=== PATIENT | male | born 1985 | race Caucasian/White ===

== ENCOUNTER 2017-06-21 13:08 | Emergency (ER) | payer MEDICAID ==
[~2017-06-21] VITALS: Ht 182.9 cm; Wt 118.2 kg
[~2017-06-21 13:08] MED LIST: CODE240S2 PO; DIVA500T7 PO; FAMO-128 PO; HYDR1TAB PO; IBUP-812 PO; KEP500T PO; NAPR-56 PO
[2017-06-21 13:28] VITALS: BP 108/39
[2017-06-21] MEDS ORDERED: HYDROcodone/acetaminophen 10/325mg tab PO ONE (13:30)
[2017-06-21] MEDS ORDERED: ketorolac trometh inj. 60 MG/2 ML VIAL IM ONE (13:30)
[2017-06-21] MEDS ORDERED: HYDR-565 PO (13:32)
[2017-06-21] MEDS ORDERED: IBUP-1984 PO (13:32)
== END 2017-06-21 14:04 | disposition home or self-care (01) ==
LOC: ER 13:08
DX: M79.662 Pain in left lower leg (principal); M79.1 Myalgia; G89.29 Other chronic pain
CPT/HCPCS: 96372; 99283; J1885

== ENCOUNTER 2017-08-26 12:44 | Outpatient (CLI) | payer MEDICAID | END 2017-08-26 23:59 | disposition home or self-care (01) | LOC: RAD 12:44 | PROVIDERS: ATTEND Registered Nurse | DX: G40.909 Epilepsy, unspecified, not intractable, without status epilepticus (principal); F17.200 Nicotine dependence, unspecified, uncomplicated | CPT/HCPCS: 95816 ==

== ENCOUNTER 2018-01-31 03:21 | Emergency (ER) | payer MEDICAID ==
[~2018-01-31] VITALS: Ht 182.9 cm; Wt 113.6 kg
[~2018-01-31 03:21] MED LIST changes: +DIVA-76 PO; -DIVA500T7 PO
[2018-01-31] MEDS ORDERED: ketorolac trometh. 30mg/ml inj. IM ONE (03:45)
[2018-01-31 04:07] VITALS: BP 119/65
== END 2018-01-31 04:10 | disposition home or self-care (01) ==
LOC: ER 03:21
DX: K08.89 Other specified disorders of teeth and supporting structures (principal); G89.29 Other chronic pain; Z79.899 Other long term (current) drug therapy
CPT/HCPCS: 96372; 99283; J1885

== ENCOUNTER 2018-06-28 00:28 | Emergency (ER) | payer MEDICAID ==
[~2018-06-28] VITALS: Ht 182.9 cm; Wt 99.5 kg
[2018-06-28 00:34] VITALS: BP 123/70
== END 2018-06-28 02:12 | disposition home or self-care (01) ==
LOC: ER 00:29
DX: S93.401A Sprain of unspecified ligament of right ankle, initial encounter (principal); G89.29 Other chronic pain; Z88.1 Allergy status to other antibiotic agents; Z79.899 Other long term (current) drug therapy; W22.8XXA Striking against or struck by other objects, initial encounter; Y93.67 Activity, basketball; Y92.310 Basketball court as the place of occurrence of the external cause; Y99.8 Other external cause status
CPT/HCPCS: 29515; 73610; 99283

== ENCOUNTER 2018-08-09 18:11 | Emergency (ER) | payer MEDICAID ==
[~2018-08-09] VITALS: Ht 182.9 cm; Wt 112.6 kg
[2018-08-09 18:18] VITALS: BP 120/68
== END 2018-08-09 20:31 | disposition home or self-care (01) ==
LOC: ER 18:11
DX: J02.9 Acute pharyngitis, unspecified (principal); G89.29 Other chronic pain; F17.200 Nicotine dependence, unspecified, uncomplicated; Z86.69 Personal history of other diseases of the nervous system and sense organs; Z88.0 Allergy status to penicillin; Z79.899 Other long term (current) drug therapy
CPT/HCPCS: 87081; 87880; 99283

== ENCOUNTER 2020-02-27 17:52 | Emergency (ER) | payer MEDICAID, OTHER ==
[~2020-02-27] VITALS: Ht 185.4 cm; Wt 135.0 kg
[2020-02-27 17:57] VITALS: BP 157/80
[2020-02-27] MEDS ORDERED: ibuprofen tablet 400 MG TABLET PO ONE (21:05)
== END 2020-02-27 21:23 | disposition home or self-care (01) ==
LOC: ER 17:53
DX: M25.531 Pain in right wrist (principal); G89.29 Other chronic pain; Z88.1 Allergy status to other antibiotic agents; Z79.899 Other long term (current) drug therapy; X37.1XXA Tornado, initial encounter; Y93.89 Activity, other specified; Y92.89 Other specified places as the place of occurrence of the external cause; Y99.8 Other external cause status
CPT/HCPCS: 29125; 73110; 99283

== ENCOUNTER 2021-05-02 22:22 | Emergency (ER) | payer OTHER, MEDICAID ==
[~2021-05-02] VITALS: Ht 185.4 cm; Wt 118.2 kg
[2021-05-02 22:34] VITALS: BP 130/68
== END 2021-05-03 00:50 | disposition home or self-care (01) ==
LOC: ER 22:23
DX: R56.9 Unspecified convulsions (principal); G89.29 Other chronic pain; Z86.69 Personal history of other diseases of the nervous system and sense organs; Z88.1 Allergy status to other antibiotic agents; Z79.899 Other long term (current) drug therapy
CPT/HCPCS: 93005; 99283

== ENCOUNTER 2021-08-21 04:53 | Emergency (ER) | payer MEDICAID ==
[~2021-08-21] VITALS: Ht 185.4 cm; Wt 120.0 kg
[2021-08-21] MEDS ORDERED: ketorolac trometh inj. 60 MG/2 ML VIAL IM ONE (06:50)
[2021-08-21] MEDS ORDERED: NAPR-56 PO (07:11)
[2021-08-21 07:32] VITALS: BP 132/75
== END 2021-08-21 07:34 | disposition home or self-care (01) ==
LOC: ER 04:54
DX: M75.21 Bicipital tendinitis, right shoulder (principal); G89.29 Other chronic pain; G40.909 Epilepsy, unspecified, not intractable, without status epilepticus; F17.200 Nicotine dependence, unspecified, uncomplicated; Z88.1 Allergy status to other antibiotic agents; Z79.899 Other long term (current) drug therapy; Z87.81 Personal history of (healed) traumatic fracture
CPT/HCPCS: 96372; 99284; J1885

== ENCOUNTER 2022-02-02 02:59 | Emergency (ER) | payer MEDICAID ==
[~2022-02-02] VITALS: Ht 185.4 cm; Wt 120.0 kg
[2022-02-02 03:32] LABS: BASOPHILS # (AUTO) 0.1 X10'3 (0-0.2); BASOPHILS % (AUTO) 0.6 % (0-1); EOSINOPHILS # (AUTO) 0.1 X10'3 (0-0.9); EOSINOPHILS % (AUTO) 1.7 % (0-6); HEMATOCRIT 47.3 % (42.0-52.0); HEMOGLOBIN 16.7 g/dl (14.0-17.9); LYMPHOCYTES # (AUTO) 1.8 X10'3 (1.1-4.8); LYMPHOCYTES % (AUTO) 21.4 % (21-51); MEAN CORPUSCULAR HEMOGLOBIN 31.2 PG (27.0-31.0); MEAN CORPUSCULAR HGB CONC 35.4 g/dL (33.0-36.5); MEAN CORPUSCULAR VOLUME 88.2 FL (78-98); MEAN PLATELET VOLUME 8.9 FL (7.4-10.4); MONOCYTES # (AUTO) 0.9 X10'3 (0-0.9); MONOCYTES % (AUTO) 10.6 % (2-12); NEUTROPHILS # (AUTO) 5.4 X10'3 (1.8-7.7); NEUTROPHILS % (AUTO) 65.7 % (42-75); PLATELET COUNT 154 X10'3 (140-440); RED BLOOD COUNT 5.36 X10'6 (4.70-6.10); RED CELL DISTRIBUTION WIDTH 12.6 % (11.5-14.5); WHITE BLOOD COUNT 8.2 X10'3 (4.5-11.0)
[2022-02-02 03:47] LABS: CLARITY,URINE CLEAR (Clear); COLOR,URINE YELLOW (Yellow); GLUCOSE, URINE NEGATIVE (Neg); KETONES,URINE NEGATIVE (Neg); LEUKOCYTE ESTERASE ,URINE NEGATIVE (Neg); NITRITES, URINE NEGATIVE (Neg); OCCULT BLOOD,URINE SMALL (Neg); PH,URINE 5.5 (4.8-8.0); PROTEIN,URINE NEGATIVE (Neg); UROBILINOGEN,URINE 0.2 E.U/dL (0.2-1.0)
[2022-02-02 03:50] LABS: ALANINE AMINOTRANSFERASE 34 U/L (12-78); ALBUMIN 3.9 G/DL (3.4-5.0); ALKALINE PHOSPHATASE 88 IU/L (46-116); ANION GAP 11 (8-16); ASPARTATE AMINO TRANSFERASE 40 U/L (10-37); BILIRUBIN,TOTAL 0.5 MG/DL (0.1-1.0); BLOOD UREA NITROGEN 13 MG/DL (7-18); CALCIUM 8.8 MG/DL (8.5-10.1); CHLORIDE 100 MMOL/L (99-107); GLUCOSE 105 MG/DL (70-104); SODIUM 137 MMOL/L (135-145); TOTAL CARBON DIOXIDE 25.8 MMOL/L (24-32); TOTAL PROTEIN 7.7 G/DL (6.4-8.2); eGFR 84 ML/MIN
[2022-02-02 03:51] LABS: UA COLLECTION TYPE CLN CATCH MIDSTREAM
[2022-02-02 03:53] LABS: BACTERIA,URINE 1+ /HPF (Neg); SQUAMOUS EPITHELIAL CELL,UR FEW /LPF (FEW)
--- NOTE | 2022-02-02 06:33 | NUR ---
REPORT FROM JAHAIRA FOR CONTINUATION OF CARE. PT IS AO4 RESP EVEN UNLABORED. PT CLAIMS RT FLANK PAIN 12/10. PT ABLE TO URINATE REPORTS NO BLOOD BUT A BURNING SENSATION. SKIN W/D/I PINK. AWAITING MD TO SEE PT.
[2022-02-02] MEDS ORDERED: normal saline 1000ML IV soln IV ONE (07:35)
[2022-02-02] MEDS ORDERED: CefTRIAXone 2gm/D5W 50ml BAG 50 ML IV ONE (07:35)
[2022-02-02] MEDS ORDERED: CEPH250T PO (07:44)
[2022-02-02 08:41] LABS: BASOPHILS % (AUTO) 0.5 % (0-1); EOSINOPHILS # (AUTO) 0.1 X10'3 (0-0.9); EOSINOPHILS % (AUTO) 0.9 % (0-6); HEMATOCRIT 44.7 % (42.0-52.0); HEMOGLOBIN 15.7 g/dl (14.0-17.9); LYMPHOCYTES # (AUTO) 1.4 X10'3 (1.1-4.8); LYMPHOCYTES % (AUTO) 14.7 % (21-51); MEAN CORPUSCULAR HEMOGLOBIN 31.2 PG (27.0-31.0); MEAN CORPUSCULAR HGB CONC 35.2 g/dL (33.0-36.5); MEAN CORPUSCULAR VOLUME 88.5 FL (78-98); MEAN PLATELET VOLUME 9.6 FL (7.4-10.4); MONOCYTES % (AUTO) 10.4 % (2-12); NEUTROPHILS # (AUTO) 6.7 X10'3 (1.8-7.7); NEUTROPHILS % (AUTO) 73.5 % (42-75); PLATELET COUNT 131 X10'3 (140-440); RED BLOOD COUNT 5.05 X10'6 (4.70-6.10); RED CELL DISTRIBUTION WIDTH 12.6 % (11.5-14.5); WHITE BLOOD COUNT 9.2 X10'3 (4.5-11.0)
[2022-02-02 09:20] LABS: POTASSIUM 3.9 MMOL/L (3.5-5.1); SODIUM 136 MMOL/L (135-145)
[2022-02-02 09:26] LABS: ALANINE AMINOTRANSFERASE 31 U/L (12-78); ALBUMIN 3.8 G/DL (3.4-5.0); ALBUMIN/GLOBULIN RATIO 1.1 (1.1-1.5); ALKALINE PHOSPHATASE 79 IU/L (46-116); ANION GAP 12 (8-16); ASPARTATE AMINO TRANSFERASE 37 U/L (10-37); BILIRUBIN,TOTAL 0.6 MG/DL (0.1-1.0); BLOOD UREA NITROGEN 13 MG/DL (7-18); BUN/CREATININE RATIO 11.4 (5.4-32.0); CALCIUM 8.8 MG/DL (8.5-10.1); CHLORIDE 100 MMOL/L (99-107); CREATININE 1.14 MG/DL (0.60-1.10); GLUCOSE 109 MG/DL (70-104); TOTAL CARBON DIOXIDE 23.8 MMOL/L (24-32); TOTAL PROTEIN 7.3 G/DL (6.4-8.2); eGFR 72 ML/MIN
[2022-02-02 11:40] VITALS: BP 149/88
== END 2022-02-02 11:43 | disposition home or self-care (01) ==
LOC: ER 03:00
DX: N39.0 Urinary tract infection, site not specified (principal); R10.84 Generalized abdominal pain; G89.29 Other chronic pain; F17.200 Nicotine dependence, unspecified, uncomplicated; Z86.69 Personal history of other diseases of the nervous system and sense organs; Z88.1 Allergy status to other antibiotic agents; Z79.2 Long term (current) use of antibiotics; Z79.899 Other long term (current) drug therapy
CPT/HCPCS: 36415; 80053; 81001; 83605; 84145; 85025; 86592; 87040; 87088; 87491; 87591; 96365; 99284; J0696; J7030

== ENCOUNTER 2022-07-12 07:22 | Emergency (ER) | payer MEDICAID ==
[~2022-07-12] VITALS: Ht 185.4 cm; Wt 113.0 kg
[~2022-07-12 07:22] MED LIST changes: +CEPH250T PO
[2022-07-12] MEDS ORDERED: ketorolac trometh. 30mg/ml inj. IV ONE (07:55)
[2022-07-12] MEDS ORDERED: ketorolac tromethamine 15mg/ml inj. IV ONE (08:00)
[2022-07-12 08:24] LABS: CLARITY,URINE CLEAR (Clear); COLOR,URINE DARK YELLOW (Yellow); GLUCOSE, URINE NEGATIVE (Neg); KETONES,URINE NEGATIVE (Neg); LEUKOCYTE ESTERASE ,URINE NEGATIVE (Neg); NITRITES, URINE NEGATIVE (Neg); OCCULT BLOOD,URINE NEGATIVE (Neg); PROTEIN,URINE NEGATIVE (Neg); UA COLLECTION TYPE CLN CATCH MIDSTREAM
[2022-07-12 08:30] LABS: ALANINE AMINOTRANSFERASE 31 U/L (12-78); ALBUMIN 3.7 G/DL (3.4-5.0); ALKALINE PHOSPHATASE 86 IU/L (46-116); ANION GAP 10 (8-16); ASPARTATE AMINO TRANSFERASE 33 U/L (10-37); BILIRUBIN,TOTAL 0.4 MG/DL (0.1-1.0); BLOOD UREA NITROGEN 15 MG/DL (7-18); BUN/CREATININE RATIO 12.3 (10.0-20.0); CALCIUM 9.2 MG/DL (8.5-10.1); CHLORIDE 103 MMOL/L (99-107); CREATININE 1.22 MG/DL (0.60-1.10); GLUCOSE 107 MG/DL (70-104); LIPASE 104 U/L (73-393); SODIUM 141 MMOL/L (135-145); TOTAL CARBON DIOXIDE 28.2 MMOL/L (24-32); TOTAL PROTEIN 7.3 G/DL (6.4-8.2); eGFR 66 ML/MIN
[2022-07-12 08:40] LABS: BASOPHILS # (AUTO) 0.1 X10'3 (0-0.2); BASOPHILS % (AUTO) 0.5 % (0-1); EOSINOPHILS # (AUTO) 0.2 X10'3 (0-0.9); EOSINOPHILS % (AUTO) 1.7 % (0-6); HEMATOCRIT 47.2 % (42.0-52.0); HEMOGLOBIN 16.3 g/dl (14.0-17.9); LYMPHOCYTES # (AUTO) 2.7 X10'3 (1.1-4.8); LYMPHOCYTES % (AUTO) 23.7 % (21-51); MEAN CORPUSCULAR HEMOGLOBIN 30.6 PG (27.0-31.0); MEAN CORPUSCULAR HGB CONC 34.5 g/dL (33.0-36.5); MEAN CORPUSCULAR VOLUME 88.9 FL (78-98); MEAN PLATELET VOLUME 9.1 FL (7.4-10.4); MONOCYTES # (AUTO) 0.9 X10'3 (0-0.9); MONOCYTES % (AUTO) 7.5 % (2-12); NEUTROPHILS # (AUTO) 7.7 X10'3 (1.8-7.7); NEUTROPHILS % (AUTO) 66.6 % (42-75); PLATELET COUNT 221 X10'3 (140-440); RED BLOOD COUNT 5.31 X10'6 (4.70-6.10); RED CELL DISTRIBUTION WIDTH 12.3 % (11.5-14.5); WHITE BLOOD COUNT 11.5 X10'3 (4.5-11.0)
[2022-07-12 10:15] VITALS: BP 130/84
== END 2022-07-12 10:17 | disposition home or self-care (01) ==
LOC: ER 07:23
DX: R10.31 Right lower quadrant pain (principal); K21.9 Gastro-esophageal reflux disease without esophagitis; G89.29 Other chronic pain; F17.200 Nicotine dependence, unspecified, uncomplicated; Z72.89 Other problems related to lifestyle; Z79.899 Other long term (current) drug therapy; Z88.1 Allergy status to other antibiotic agents
CPT/HCPCS: 36415; 74176; 80053; 81003; 83690; 85025; 96374; 99285; J1885; 96372; 99283

== ENCOUNTER 2022-08-23 19:32 | Emergency (ER) | payer MEDICAID ==
[~2022-08-23] VITALS: Ht 185.4 cm; Wt 111.8 kg
[2022-08-23 20:02] VITALS: BP 136/77
[2022-08-23] MEDS ORDERED: ketorolac tromethamine 15mg/ml inj. IM ONE (20:45)
[2022-08-23] MEDS ORDERED: oxyCODONE/APAP 5-325mg tablet PO ONE (20:45)
== END 2022-08-23 21:07 | disposition home or self-care (01) ==
LOC: ER 19:33
DX: S63.501A Unspecified sprain of right wrist, initial encounter (principal); K21.9 Gastro-esophageal reflux disease without esophagitis; G89.29 Other chronic pain; Z88.1 Allergy status to other antibiotic agents; Z79.899 Other long term (current) drug therapy; Z79.1 Long term (current) use of non-steroidal anti-inflammatories (NSAID); Z79.2 Long term (current) use of antibiotics; X50.0XXA Overexertion from strenuous movement or load, initial encounter; Y93.89 Activity, other specified; Y92.89 Other specified places as the place of occurrence of the external cause; Y99.8 Other external cause status
CPT/HCPCS: 29125; 73110; 96372; 99283; J1885

== ENCOUNTER 2023-01-15 01:21 | Emergency (ER) | payer MEDICAID ==
[~2023-01-15] VITALS: Ht 185.4 cm; Wt 125.7 kg
[2023-01-15 03:11] VITALS: BP 130/85; PULSE 75; TEMP 98.3; O2SAT 96
[2023-01-15 03:14] VITALS: RESP 18
[2023-01-15] MEDS ORDERED: PANT-47 PO (03:19)
[2023-01-15] MEDS ORDERED: famotidine 20mg tablet PO ONE (03:20)
[2023-01-15] MEDS ORDERED: pantoprazole 40mg Tablet.DR PO ONE (03:20)
== END 2023-01-15 03:35 | disposition home or self-care (01) ==
LOC: ER 01:21
DX: B34.9 Viral infection, unspecified (principal); Z20.822 Contact with and (suspected) exposure to COVID-19; K21.9 Gastro-esophageal reflux disease without esophagitis; G89.29 Other chronic pain
CPT/HCPCS: 36415; 71045; 87502; 87503; 87811; 99284

== ENCOUNTER 2023-04-20 00:55 | Emergency (ER) | payer MEDICAID ==
[~2023-04-20] VITALS: Ht 185.4 cm; Wt 124.1 kg
[~2023-04-20 00:55] MED LIST changes: -CEPH250T PO; +PANT-47 PO
[2023-04-20 00:59] VITALS: BP 126/79; PULSE 75; TEMP 97.7; O2SAT 97
[2023-04-20 01:15] VITALS: RESP 18
[2023-04-20 02:03] LABS: BILIRUBIN,URINE NEGATIVE (Neg); CLARITY,URINE CLEAR (Clear); COLOR,URINE YELLOW (Yellow); GLUCOSE, URINE NEGATIVE (Neg); KETONES,URINE NEGATIVE (Neg); LEUKOCYTE ESTERASE ,URINE NEGATIVE (Neg); NITRITES, URINE NEGATIVE (Neg); OCCULT BLOOD,URINE NEGATIVE (Neg); PH,URINE 5.5 (4.8-8.0); PROTEIN,URINE NEGATIVE (Neg); UROBILINOGEN,URINE 0.2 E.U/dL (0.2-1.0)
[2023-04-20 02:09] LABS: UA COLLECTION TYPE CLN CATCH MIDSTREAM
[2023-04-20 02:14] LABS: BASOPHILS # (AUTO) 0.1 X10'3 (0-0.2); BASOPHILS % (AUTO) 0.6 % (0-1); EOSINOPHILS # (AUTO) 0.2 X10'3 (0-0.9); EOSINOPHILS % (AUTO) 1.5 % (0-6); HEMOGLOBIN 17.1 g/dl (14.0-17.9); LYMPHOCYTES # (AUTO) 3.5 X10'3 (1.1-4.8); LYMPHOCYTES % (AUTO) 31.4 % (21-51); MEAN CORPUSCULAR HEMOGLOBIN 31.4 PG (27.0-31.0); MEAN CORPUSCULAR HGB CONC 34.9 g/dL (33.0-36.5); MEAN CORPUSCULAR VOLUME 89.9 FL (78-98); MEAN PLATELET VOLUME 9.3 FL (7.4-10.4); MONOCYTES % (AUTO) 9.2 % (2-12); NEUTROPHILS # (AUTO) 6.5 X10'3 (1.8-7.7); NEUTROPHILS % (AUTO) 57.3 % (42-75); PLATELET COUNT 206 X10'3 (140-440); RED BLOOD COUNT 5.45 X10'6 (4.70-6.10); RED CELL DISTRIBUTION WIDTH 12.3 % (11.5-14.5); WHITE BLOOD COUNT 11.3 X10'3 (4.5-11.0)
[2023-04-20 02:31] LABS: ALANINE AMINOTRANSFERASE 57 U/L (12-78); ALBUMIN 3.9 G/DL (3.4-5.0); ALKALINE PHOSPHATASE 109 IU/L (46-116); ANION GAP 8 (8-16); ASPARTATE AMINO TRANSFERASE 42 U/L (10-37); BILIRUBIN,TOTAL 0.4 MG/DL (0.1-1.0); BLOOD UREA NITROGEN 12 MG/DL (7-18); CALCIUM 8.2 MG/DL (8.5-10.1); CHLORIDE 105 MMOL/L (99-107); CREATININE 0.86 MG/DL (0.60-1.10); GLUCOSE 126 MG/DL (70-104); LIPASE 41 U/L (16-77); POTASSIUM 4.1 MMOL/L (3.5-5.1); SODIUM 142 MMOL/L (135-145); TOTAL CARBON DIOXIDE 28.7 MMOL/L (24-32); TOTAL PROTEIN 7.7 G/DL (6.4-8.2); eCRCL 130 ML/MIN; eGFR > 90 ML/MIN
[2023-04-20] MEDS: acetaminophen 1,000mg/100ml IV 100 ML IV STA (02:56)
[2023-04-20] MEDS: normal saline 1000ML IV soln IVB ONE (02:56)
[2023-04-20] MEDS: ondansetron/PF 4mg/2ml inj IV ONE (02:56)
== END 2023-04-20 03:39 | disposition home or self-care (01) ==
LOC: ER 00:55
DX: K80.50 Calculus of bile duct without cholangitis or cholecystitis without obstruction (principal); R10.11 Right upper quadrant pain; F17.200 Nicotine dependence, unspecified, uncomplicated; K21.9 Gastro-esophageal reflux disease without esophagitis; Z88.1 Allergy status to other antibiotic agents; Z79.899 Other long term (current) drug therapy; Z79.1 Long term (current) use of non-steroidal anti-inflammatories (NSAID)
CPT/HCPCS: 36415; 80053; 81003; 83690; 85025; 96374; 96375; 99284; J0131; J2405; J7030

== ENCOUNTER 2023-07-12 21:13 | Emergency (ER) | payer MEDICAID, OTHER ==
[~2023-07-12] VITALS: Ht 185.4 cm; Wt 128.0 kg
[2023-07-12 21:19] VITALS: TEMP 98.3
[2023-07-12 21:43] LABS: BILIRUBIN,URINE NEGATIVE (Neg); CLARITY,URINE SLIGHTLY CLOUDY (Clear); COLOR,URINE YELLOW (Yellow); GLUCOSE, URINE NEGATIVE (Neg); KETONES,URINE NEGATIVE (Neg); LEUKOCYTE ESTERASE ,URINE NEGATIVE (Neg); NITRITES, URINE NEGATIVE (Neg); OCCULT BLOOD,URINE NEGATIVE (Neg); PROTEIN,URINE NEGATIVE (Neg)
[2023-07-12 21:47] LABS: UA COLLECTION TYPE CLN CATCH MIDSTREAM
[2023-07-12 21:50] LABS: SQUAMOUS EPITHELIAL CELL,UR MODERATE /LPF (FEW); WBC,URINE 20-30 /HPF (0-4)
[2023-07-12 21:51] LABS: BACTERIA,URINE FEW /HPF (Neg); RBC,URINE 0-2 /HPF (0-2); TRANSITIONAL EPI CELLS,URINE FEW /HPF
[2023-07-12] MEDS: CefTRIAXone 1000mg IM Kit (w/lidocaine diluent) IM ONE (22:19)
[2023-07-12] MEDS: ketorolac tromethamine 15mg/ml inj. IM ONE (22:19)
[2023-07-12 22:28] VITALS: BP 150/84; PULSE 88; RESP 14; O2SAT 98
== END 2023-07-12 22:32 | disposition home or self-care (01) ==
LOC: ER 21:14
DX: N39.0 Urinary tract infection, site not specified (principal); K21.9 Gastro-esophageal reflux disease without esophagitis; Z88.1 Allergy status to other antibiotic agents; Z79.899 Other long term (current) drug therapy; Z79.1 Long term (current) use of non-steroidal anti-inflammatories (NSAID); Z79.2 Long term (current) use of antibiotics
CPT/HCPCS: 81001; 87088; 96372; 99284; J0696; J1885

== ENCOUNTER 2023-07-21 07:44 | Outpatient (CLI) | payer MEDICAID | END 2023-07-21 23:59 | disposition home or self-care (01) | LOC: RAD 07:44 | PROVIDERS: ATTEND Registered Nurse | DX: K76.0 Fatty (change of) liver, not elsewhere classified (principal); R10.11 Right upper quadrant pain | CPT/HCPCS: 76700 ==

== ENCOUNTER 2024-12-05 23:25 | Emergency (ER) | payer BC, MEDICAID ==
[~2024-12-05] VITALS: Ht 185.4 cm; Wt 127.3 kg
[~2024-12-05 23:25] MED LIST changes: +DIVA-134 PO; -DIVA-76 PO
[2024-12-06] MEDS ORDERED: CLIN-118 PO (01:02)
[2024-12-06] MEDS: HYDROcodone/acetaminophen 10/325mg tab PO ONE (01:09)
--- NOTE | 2024-12-06 01:12 | Physician Documentation ---
HPI ~ General Chief Complaint: Tooth Problem Stated Complaint: JAW PAIN Time Seen by MD: 00:56 OK to notify your PCP?: Yes Primary Medical Doctor: GRACIELA PUGA Source: patient, RN/MD, RN notes reviewed, old records Mode of Arrival: POV Exam Limitations: no limitations Contreras Bed Addressed? This patient has been complaining of recurrent dental pain has a chipped tooth a right lower molar happening once again he is having severe pain for last 2-3 days been using salt water gargles and mouthwash but continues to hurt. He has not appointment for the dentist in the future but his pain became a bit unbearable tonight despite using Tylenol and Motrin. Patient is now here for evaluation no fevers or chills no drainage. He is otherwise in good health has no other complaints at this time recently diagnosed with diabetes. Past medical history is significant for seizures hypercholesterolemia and diabetes Surgical history is negative Social history quit tobacco smoking eight months ago occasional alcohol denies marijuana Medication Reconciliation Allergies: Coded Allergies: amoxicillin (Verified Allergy, Unknown, 07/12/23) Scheduled Clindamycin HCl (Clindamycin HCl), 1 CAP PO Q8H Divalproex Sodium DR* (Depakote DR*), 1,000 MG PO BID, (Reported) Famotidine (Pepcid), 1 TABLET PO BID Hydrocodone/Acetaminophen (Vicodin 5-500 Tablet), 1 TAB PO Q6H Ibuprofen (Motrin), 400 MG PO TID Ibuprofen (Motrin), 400 MG PO TID Levetiracetam (Keppra), 500 MG PO BID Naproxen (Naproxen), 500 MG PO Q12H Pantoprazole Sodium (PROTONIX tablet), 1 TAB PO DAILY Promethazine HCl/Codeine (Promethazine-Codeine Syrup), 1 TBS PO 5XD Scheduled PRN Hydrocodone/Acetaminophen (Vicodin 5-500 Tablet), 1-2 TAB PO Q6H PRN Past Medical History Past Medical History: Seizures, GERD, Chronic Pain Past Surgical History: no surgical history Alcohol Use: Occasionally Drug Use: none Lives with: Spouse Lives In: Home Occupation: employed Review of Systems All Other Systems at this time: Reviewed and Negative Physical Exam Vital Signs: RN Vital Signs have been reviewed: Yes, Temperature: 98.2, Source: Oral, Heart Rate: 87, Respiratory Rate: 16, BP: 144/87, Pulse Oximetry: 97, Weight: 127.270 Oxygen Flow Rate: 0 Physical Exam General: The patient is well developed, well nourished, nontoxic appearing and is in mild acute distress. Skin: [place], warm and dry with no rashes. HEENT: Head was normocephalic and atraumatic. Eyes - pupils equal, round, reactive to light and accommodation. Extraocular movements were intact. Conj unctivae were nonicteric. The mouth and oropharynx were clear with moist mucous membranes. There were no pharyngeal exudates or erythema. Dental a right lower molar tender to palpation no fluctuance or mass of the gumline Neck: Supple and nontender. There was no jugular venous distention, Chest: Clear to auscultation bilaterally without wheezes, rales or rhonchi. Heart: Rate regular and rhythmic. S1, S2. No murmurs. Abdomen: Soft, nontender and nondistended. Positive bowel sounds. Extremities: No cyanosis, clubbing or edema. The patient moves all extremities. Progress Results/Orders Reviewed/noted all lab results: Yes Results/Orders Orders - ANGELIKA LONG MD Hydrocodone/Apap 10/325 (Tatamy 10/325mg (12/06/24 01:05) Clindamycin Capsule (Cleocin Capsule) (12/06/24 01:05) Vital Signs 12/05/24 23:53 Temp 98.2 Pulse 87 Resp 16 B/P (MAP) 144/87 Pulse Ox 97 O2 Flow Rate 0 Re-Evaluation Re-Evaluation : Re-Evaluation: Improved Progress Patient was seen and examined. Patient is given reassurance. Patient was given clindamycin pain medications Tatamy and naproxen given a prescription for clinda and discharged home to follow up with a dentist we discussed abscess and other potential problems to return to the ER otherwise patient is medically cleared and discharged. Medical Decision Making Additional info obtained from: old records Differential Dx:Considerations: Include: Alveolar fracture, Alveolar osteitis, ANUG, Facial Cellulitis, Periapical abscess, Peridontal abscess, Post-extraction bleeding, Pulpitis, Tooth avulsion, Tooth eruption, Tooth Fracture, Trigeminal neuralgia, Tooth subluxation, Other Departure Disposition: 01 HOME / SELF CARE / HOMELESS Impression: Primary Impression: Dental caries Additional Impression: Dental abscess Condition: Stable Discharge Instructions: Dental Caries, Adult Referrals: NO PRIMARY CARE PROVIDER (PCP) Prescriptions Clindamycin HCl (Clindamycin HCl) 150 Mg Capsule 1 CAP PO Q8H for 10 Days, #30 CAP Prov: ANGELIKA LONG MD 12/06/24 Education Educated: Patient Educated regarding: need for follow up, other Signature Scribe Signature: No scribed Attestation: The note accurately reflects work and decisions made by me.Angelika Long MD 12/06/24 01:16 ANGELIKA LONG MD Dec 06, 2024 01:12
[2024-12-06 01:15] VITALS: BP 140/80; PULSE 82; RESP 18; TEMP 98.6; O2SAT 99
== END 2024-12-06 01:27 | disposition home or self-care (01) ==
LOC: ER 23:25
DX: K02.9 Dental caries, unspecified (principal); K04.7 Periapical abscess without sinus; K21.9 Gastro-esophageal reflux disease without esophagitis; Z88.0 Allergy status to penicillin
CPT/HCPCS: 99283

== ENCOUNTER 2025-01-31 02:41 | Emergency (ER) | payer BC ==
[~2025-01-31] VITALS: Ht 185.4 cm; Wt 133.8 kg
--- NOTE | 2025-01-31 02:52 | ELECTROCARDIOGRAPH REPORT ---
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 Angelika Long Measurements Intervals [place] Rate: 84 P: 50 KS: 191 QRS: 8 QRSD: 78 T: 41 QT: 356 QTc: 421 Interpretive Statements Sinus rhythm Low voltage, precordial leads Abnormal R-wave progression, early transition Minimal ST elevation, inferior leads Electronically Signed On 01-31-2025 5:01:[address] Angelika Long Please click the below link to view image of tracing.
--- NOTE | 2025-01-31 03:15 | RADIOLOGY REPORT ---
CHEST RADIOGRAPH Indication: CP Technique: Single frontal view of the chest was obtained COMPARISON: DI CHEST,SINGLE VIEW on DOS: 01/15/23 FINDINGS: Lines and Tubes: None Lungs: Clear Pleura: No effusion. No pneumothorax. Cardiomediastinal contours: Unremarkable Bones: Unremarkable IMPRESSION: 1. No acute disease.
[2025-01-31 03:20] LABS: MEAN PLATELET VOLUME 9.5 FL (7.4-10.4); RED CELL DISTRIBUTION WIDTH 12.3 % (11.5-14.5)
[2025-01-31 03:32] LABS: CREATININE 0.81 MG/DL (0.60-1.10); TOTAL CARBON DIOXIDE 31.6 MMOL/L (24-32); eCRCL 136 ML/MIN; eGFR > 90 ML/MIN
[2025-01-31 03:36] LABS: PRO BRAIN NATRIURETIC PEPTIDE < 30 PG/ML (0-125)
--- NOTE | 2025-01-31 06:29 | Physician Documentation ---
History of Present Illness General Chief Complaint: Chest Pain Stated Complaint: CHEST DISCOMFORT Time Seen by MD: 06:11 Primary Medical Doctor: [facility] Mode of Arrival: POV History of Present Illness Initial Comments The patient is a 39-year-old male the presents to the emergency room with a an episode of chest pain patient states he was asleep and awoke with left-sided chest pain and numbness to his left chest he states the pain is intermittent and has continued but improved slightly. The patient denies any shortness of breath. Patient denies any history of cardiac disease. Patient states he is a diabetic he also has seizures and he is unsure whether he has a seizure last night. Patient's symptoms are moderate and persistent. Patient denies any nausea or vomiting he states he had some slight diaphoresis of the time of the episode. He also states that has blood sugars has been slightly elevated. Medication Reconciliation Allergies: Coded Allergies: amoxicillin (Verified Allergy, Unknown, 01/31/25) Scheduled Divalproex Sodium DR* (Depakote DR*), 1,000 MG PO BID, (Reported) Famotidine (Pepcid), 1 TABLET PO BID Hydrocodone/Acetaminophen (Vicodin 5-500 Tablet), 1 TAB PO Q6H Ibuprofen (Motrin), 400 MG PO TID Ibuprofen (Motrin), 400 MG PO TID Levetiracetam (Keppra), 500 MG PO BID Naproxen (Naproxen), 500 MG PO Q12H Pantoprazole Sodium (PROTONIX tablet), 1 TAB PO DAILY Promethazine HCl/Codeine (Promethazine-Codeine Syrup), 1 TBS PO 5XD Scheduled PRN Hydrocodone/Acetaminophen (Vicodin 5-500 Tablet), 1-2 TAB PO Q6H PRN Past Medical History Past Medical History: Seizures, GERD, Chronic Pain Past Surgical History: no surgical history Smoking: Cigarettes, Less than 1 pack/day Alcohol Use: Occasionally Drug Use: none Lives with: Spouse Lives In: Home Occupation: employed Review of Systems All Other Systems at this time: Reviewed and Negative Physical Exam Physical Exam Vital Signs: Temperature: 97.3, Source: Temporal, Heart Rate: 68, Respiratory Rate: 10, BP: 106/63, Pulse Oximetry: 97, Weight: 133.800 Oxygen Flow Rate: 0 Physical Exam VITALS: Reviewed and as above. GENERAL: Alert, no apparent distress. HEENT: Normocephalic, atraumatic, PERRL, EOMI, dry mucosa, no erythema RESPIRATORY: Lungs clear, normal breath sounds, no respiratory distress. CHEST: No accessory muscle use, no retractions CV: Regular rate, rhythm, no edema, no murmur, No: JVD GI: Soft, non-tender, bowels sounds present, no rebound, guarding, or rigidity BACK: No CVA tenderness, or swelling MUSCULOSKELETAL: No deformities, no edema SKIN: Warm and dry, no rash NEURO: Oriented x4, No motor or sensory deficit PSYCH: Normal mood and affect, no agitation Progress Results/Orders Results/Orders Vital Signs 01/31/25 01/31/25 01/31/25 01/31/25 02:45 03:05 04:00 05:00 Temp 97.3 Pulse 86 62 68 Resp 16 15 18 10 B/P (MAP) 138/76 124/80 (95) 106/63 (77) Pulse Ox 97 96 97 O2 Flow Rate 0 01/31/25 07:02 Temp 97.5 Pulse 70 Resp 14 B/P (MAP) 114/64 Pulse Ox 95 Laboratory Tests Test 01/31/25 02:58 01/31/25 03:00 01/31/25 05:30 01/31/25 06:29 Glucometer 250 H White Blood Count 9.2 Red Blood Count 4.98 Hemoglobin 15.4 Hematocrit 43.9 Mean Corpuscular Volume 88.2 Mean Corpuscular Hemoglobin 30.9 Mean Corpuscular Hemoglobin Concent 35.0 Red Cell Distribution Width 12.3 Platelet Count 217 Mean Platelet Volume 9.5 Neutrophils (%) (Auto) 62.6 Lymphocytes (%) (Auto) 27.3 Monocytes (%) (Auto) 7.9 Eosinophils (%) (Auto) 1.2 Basophils (%) (Auto) 1.0 Neutrophils # (Auto) 5.8 Lymphocytes # (Auto) 2.5 Monocytes # (Auto) 0.7 Eosinophils # (Auto) 0.1 Basophils # (Auto) 0.1 CBC Comment Sodium Level 139 Potassium Level 4.0 Chloride Level 102 Carbon Dioxide Level 31.6 Anion Gap 5 L Blood Urea Nitrogen 13 Creatinine 0.81 Estimated GFR/1.73 m2 > 90 BUN/Creatinine Ratio 16.0 Glucose Level 225 H Calcium Level 8.8 Troponin I High Sensitivity 5 6 4 Pro-B-Type Natriuretic Peptide < 30 Albumin 3.7 Chemistry Comments Troponin I High Sens Percent Delta 20 33 Troponin I Hi Sens Absolute Change 1 -2 EKG/XRAY/CT/US/VASC/MRI Chest X-Ray : Additional Comments t: RADHA WANG Medical Record: [id number] 1985, Age: 39 Sex: Male Location: ER Patient Status: REG ER Service Date/Time: 01/31/25299 Ordering Physician: ANGELIKA LONG MD Exam: CHEST,SINGLE VIEW CHEST RADIOGRAPH Indication: CP Technique: Single frontal view of the chest was obtained COMPARISON: DI CHEST,SINGLE VIEW on DOS: 01/15/23 FINDINGS: Lines and Tubes: None Lungs: Clear Pleura: No effusion. No pneumothorax. Cardiomediastinal contours: Unremarkable Bones: Unremarkable IMPRESSION: 1. No acute disease. Electronically Signed by:ASHER BURNETT MD Date & Time: 01/31/25311 Dictated by: ASEHR BURNETT MD Dictation date and time: 01/31/25311 Primary Care Provider: NO PRIMARY CARE PROVIDER cc: ANGELIKA LONG MD ~ Medical Decision Making Additional information obtaine: old records Findings Patient is a 12 lead EKG was interpreted by me in the rate was 84 he the patient has a normal axis patient had some nonspecific ST abnormalities. The the [facility] ient is EKG was interpreted by me as a borderline EKG time of interpretation was 651. The patient presents with a atypical chest pain that has improved. His serial troponins are negative. The patient's chest x-ray was reviewed by me demonstrated a normal cardiac silhouette normal mediastinum and normal-appearing lung narvaez I interpreted as x-ray has a normal x-ray the patient's pulse oximetry was interpreted as normal his previous hospitalizations has been reviewed the patient's labs were reviewed the patient is comfortable in no distress the patient will be discharged with instructions to follow up as an outpatient. 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 Differential Diagnosis musculoskeletal chest pain, gastritis GERD, pleurisy Departure Time of Disposition: 06:46 Disposition: 01 HOME / SELF CARE / HOMELESS Impression: Primary Impression: Chest pain Qualified Codes: R07.9 - Chest pain, unspecified Discharge Instructions: Nonspecific Chest Pain, Adult Referrals: NO PRIMARY CARE PROVIDER (PCP) Signature Scribe Signature: no scribe Attestation: The note accurately reflects work and decisions made by me.Jose L Joya MD 02/01/25 06:30 JOSE L JOYA MD Jan 31, 2025 06:29
[2025-01-31 07:02] VITALS: BP 114/64; PULSE 70; RESP 14; TEMP 97.5; O2SAT 95
== END 2025-01-31 07:06 | disposition home or self-care (01) ==
LOC: ER 02:42
DX: R07.9 Chest pain, unspecified (principal); E11.9 Type 2 diabetes mellitus without complications; K21.9 Gastro-esophageal reflux disease without esophagitis; F17.210 Nicotine dependence, cigarettes, uncomplicated; G89.29 Other chronic pain; Z88.1 Allergy status to other antibiotic agents; Z79.899 Other long term (current) drug therapy; Z72.89 Other problems related to lifestyle
CPT/HCPCS: 36415; 71045; 80048; 82948; 83880; 84484; 85025; 93005; 99285